=== PATIENT | male | born 1985 | race Caucasian/White ===

== ENCOUNTER 2023-06-05 13:21 | Emergency (ER) | payer OTHER, SELFPAY ==
[2023-06-05 13:52] VITALS: BP 170/93; PULSE 124; RESP 20; TEMP 36.6; O2SAT 94; BMI 70.7
--- NOTE | 2023-06-05 15:39 | CRLHL7_ITS ---
For Patients: As a result of the Century Cures Act, medical imaging exams and procedure reports are released immediately into your electronic medical record. You may view this report before your referring provider. If you have questions, please contact your health care provider. INDICATION: Dyspnea COMPARISON: None TECHNIQUE: Single-view study FINDINGS: TUBES AND LINES: None. HEART AND MEDIASTINUM: Enlarged heart. LUNGS AND PLEURAL SPACES: Vascular and interstitial prominence probably representing CHF/edema.A diffuse inflammatory process accounting for this is possible. No pleural effusion or pneumothorax. OSSEOUS STRUCTURES: Age-appropriate appearance. No acute focal finding. IMPRESSION: Enlarged heart. Findings likely representing CHF/edema. A diffuse inflammatory process accounting for this is also possible. No pleural effusion or pneumothorax. Dictated by Sreekanth Alba MD @ 06/05/2023 5:42:03 PM (Electronically Signed)
--- NOTE | 2023-06-05 15:40 | ED.GENADULT ---
HPI - General Adult General Chief complaint: Shortness of Breath/Dyspnea Stated complaint: Shortness of breath, cough, edema Time Seen by Provider: 06/05/23 15:33 History of Present Illness HPI narrative: This 38-year-old male comes in reporting worsening shortness of breath over the past month or so. He is morbidly obese and has a stated weight of 464 lb. He states that he was diagnosed with congestive heart failure 11 years ago. He is taking Lasix 40 mg daily and states that he has not had any change of his medications for quite some time. He moved from floor to the about 8 months ago. He does not report any fevers or signs of infection. He does report a cough and states that he has orthopnea related to edema. He has large bilateral edema with skin breakdown in his lower legs. He also has very large pannus with skin breakdown in the lower abdomen due to edema. He does not report any chest pain. He has not had any fevers. He arrives with some tachycardia and respirations at 20 per minute. He is maintaining sufficient oximetry on room air and is not using accessory muscles for breathing. Related Data Home Medications Medication Instructions Recorded Confirmed amlodipine 10 mg tablet 10 mg PO DAILY 06/05/23 06/05/23 furosemide 40 mg tablet (Lasix) 40 mg PO DAILY 06/05/23 06/05/23 hydralazine 25 mg tablet 25 mg PO BID 06/05/23 06/05/23 isosorbide mononitrate 60 mg 60 mg PO DAILY 06/05/23 06/05/23 tablet,extended release 24 hr Previous Rx's Medication Instructions Recorded amlodipine 10 mg tablet 10 mg PO DAILY #30 tabs 06/05/23 cephalexin 500 mg capsule 500 mg PO TID 7 days #21 caps 06/05/23 furosemide 40 mg tablet (Lasix) 40 mg PO QAM #30 tabs 06/05/23 hydralazine 25 mg tablet 25 mg PO BID #60 tabs 06/05/23 isosorbide mononitrate 60 mg 60 mg PO DAILY #30 tabs 06/05/23 tablet,extended release 24 hr Allergies Allergy/AdvReac Type Severity Reaction Status Date / Time No Known Drug Allergies Allergy Verified 06/05/23 13:43 Review of Systems Status of ROS: Reports: 10 or more systems reviewed and unremarkable except as noted in History and below Narrative: Constitutional: No fevers, no weight gain or loss. Eyes: No discharge. No vision changes. HENT: No congestion, no sore throat, no ear pain. Cardiovascular: No chest pain, no palpitations. Respiratory: Shortness of breath with exertion. Orthopnea. Occasional cough. No wheezing. Gastrointestinal: No abdominal pain, no vomiting, no diarrhea. Genitourinary: No dysuria, no hematuria. Musculoskeletal: Normal range of motion. Skin: No rashes, no pruritis. Neurological: No dizziness, weakness, sensory change, speech change. Endo/Heme/Allergies: No bruising or bleeding. No polydipsia. Pysch: no suicidality, no anxiety, no insomnia. All other systems reviewed and are negative. PFSH PFSH Social History Smoking Status: Never smoker How often do you have a drink containing alcohol: monthly or less AUDIT-C Alcohol total score: 1 Non-prescribed substance use: denies use Exam Narrative: Exam Narrative: Constitutional: Well-developed, well-nourished, no acute distress. Morbidly obese. HEENT: Normocephalic, atraumatic. Neck: Normal range of motion. Nontender. Supple. Heart: Regular. No murmurs. Tachycardia. Intact distal pulses. Lungs: Clear to auscultation. No chest discomfort. No wheezes, rhonchi, or rales. Abdomen: Normal bowel sounds. Nontender. No rebound tenderness. Genitalia: Deferred. Back: No midline tenderness. Normal range of motion. Extremities: Normal range of motion. No injury. Skin: Intact. Left lower extremity is wrapped in a compression wrap. Bilateral large lower extremity edema with some skin breakdown. Neurologic: No altered sensation. No weakness. Alert and oriented. Psychiatric: No suicidality. No anxiety or depression. No insomnia. Nursing notes and vitals signs are reviewed. Const: Vital Signs, click to edit/add: Vital Signs - 24 hr 06/05/23 13:52 06/05/23 16:10 06/05/23 16:15 Temperature 97.8 F Pulse Rate [Right Pulse Oximeter] 124 H 120 H 116 H Respiratory Rate 20 20 Blood Pressure [Ri ght Upper Arm] 170/93 H 141/94 H Pulse Oximetry 94 92 93 Oxygen Delivery Me thod Room Air Room Air Room Air 06/05/23 17:27 Temperature Pulse Rate [Right Pulse Oximeter] 116 H Respiratory Rate 22 Blood Pressure [Ri ght Upper Arm] 172/108 H Pulse Oximetry 90 Oxygen Delivery Me thod Room Air Course Vital Signs Vital signs: Initial Vital Signs Temperature 97.8 F 06/05/23 13:52 Temperature Source Temporal Artery Scan 06/05/23 13:52 Pulse Rate 124 H 06/05/23 13:52 Pulse Rhythm Regular 06/05/23 13:52 Respiratory Rate 20 06/05/23 13:52 Blood Pressure 170/93 H 06/05/23 13:52 Blood Pressure Mean 118 H 06/05/23 13:52 Blood Pressure Position Sitting 06/05/23 13:52 Pulse Oximetry 94 06/05/23 13:52 Oxygen Delivery Method Room Air 06/05/23 13:52 Vital Signs Temperature 97.8 F 06/05/23 13:52 Pulse Rate 124 H 06/05/23 13:52 Respiratory Rate 20 06/05/23 13:52 Blood Pressure 170/93 H 06/05/23 13:52 Pulse Oximetry 94 06/05/23 13:52 Oxygen Delivery Method Room Air 06/05/23 13:52 Temperature 97.8 F 06/05/23 13:52 Pulse Rate 116 H 06/05/23 17:27 Respiratory Rate 22 06/05/23 17:27 Blood Pressure 172/108 H 06/05/23 17:27 Pulse Oximetry 90 06/05/23 17:27 Oxygen Delivery Method Room Air 06/05/23 17:27 Medical Decision Making MDM Narrative Medical decision making narrative: This 38-year-old male comes in reporting worsening shortness of breath over the past month or so. He is morbidly obese weighing over 460 lb. He has chronic left lower extremity skin breakdown and feels that he may be developing an infection again. He has large edema throughout his body. Chest x-ray shows an enlarged heart but no other acute findings. His B type nitrate peptide is in normal range at 189. His white count is on the upper edge of normal. Other labs are essentially in normal range. This patient has normal-sounding lungs on auscultation. He is maintaining sufficient oximetry on room air and is not using accessory muscles for breathing. His shortness of breath is largely due to morbid obesity. He has been taking Lasix 40 mg daily but states that this does not seem to make him have increased voiding of urine. He states that he moved here several months ago and has not yet established a primary care physician here. He states that he wants to get a job 1st and then when his insurance is in place he will establish care. Today he is asking for refill of his medications. I stated that I would do this for short time but he will need to connect with a physician for ongoing management. Lab Data Labs: Lab Results 06/05/23 Range/Units 15:58 WBC 11.89 H (4.50-11.00) K/uL RBC 5.15 (4.30-5.90) m/uL Hgb 12.9 L (13.5-17.5) gm/dL Hct 41.8 (37.0-53.0) % MCV 81 (80-100) fL MCH 25 L (26-34) pg MCHC 31 L (32-36) gm/dL RDW Coeff of Kayy 14.2 (11.5-15.5) % Plt Count 409 (140-440) K/uL Neut % (Auto) 62.8 (42.0-72.0) % Lymph % (Auto) 26.9 (20-44) % [place] % (Auto) 7.4 (0.0-11.0) % Eos % (Auto) 1.9 (0.0-7.0) % Baso % (Auto) 0.6 (0.0-3.0) % Neut # (Auto) 7.50 H (1.7-7.0) K/uL Lymph # (Auto) 3.20 H (0.90-2.90) K/uL [place] # (Auto) 0.90 (0.00-0.90) K/UL Eos # (Auto) 0.20 (0.00-0.50) K/uL Baso # (Auto) 0.10 (0.00-0.30) K/uL Abs Immat Gran (auto) 0.00 (0.00-0.30) K/uL Imm/Tot Granulo (auto) 0.4 % Sodium 139 (135-149) mmol/L Potassium 3.5 L (3.6-5.1) mmol/L Chloride 100 (96-114) mmol/L Carbon Dioxide 26 (20-32) mmol/L Anion Gap 13 (7-15) mEq/L BUN 8 (5-24) mg/dL Creatinine 0.5 (0.5-1.5) mg/dL Estimated Creat Clear 190.00 Estimated GFR 132 ml/min Glucose 156 H (60-115) mg/dL Calcium 9.6 (8.4-10.6) mg/dL Troponin I 0.03 (0.01-0.04) ng/mL NT-Pro-B Natriuret Pep 189 pg/mL Imaging Data Chest x-ray: Radiologist's impression: Enlarged heart. Findings likely representing CHF/edema. A diffuse inflammatory process accounting for this is also possible. No pleural effusion or pneumothorax. Discharge Plan Discharge Clinical Impression: Exertional shortness of breath, Cellulitis Patient Disposition: Home, Self-Care Condition: Stable Additional Instructions: Arrange ongoing care with a primary physician. Take medications as prescribed. Follow up with MD otherwise as needed. Return if worsening. Prescriptions: New amlodipine 10 mg tablet 10 mg PO DAILY Qty: 30 2RF furosemide [Lasix] 40 mg tablet 40 mg PO QAM Qty: 30 2RF hydralazine 25 mg tablet 25 mg PO BID Qty: 60 2RF isosorbide mononitrate 60 mg tablet extended release 24 hr 60 mg PO DAILY Qty: 30 2RF cephalexin 500 mg capsule 500 mg PO TID 7 Days Qty: 21 0RF No Action furosemide [Lasix] 40 mg tablet 40 mg PO DAILY isosorbide mononitrate 60 mg tablet extended release 24 hr 60 mg PO DAILY amlodipine 10 mg tablet 10 mg PO DAILY hydralazine 25 mg tablet 25 mg PO BID Follow Up/Referrals: Provider,Not a Local [Primary Care Provider] - Stand Alone Forms: MyHealth Info Instructions
[2023-06-05 16:08] LABS: Basophils Percent Auto 0.6 % (0.0-3.0); Eosinophils Percent Auto 1.9 % (0.0-7.0); Hematocrit 41.8 % (37.0-53.0); Hemoglobin* 12.9 gm/dL (13.5-17.5); Immature Granulocytes Pct Auto 0.4 %; Lymphocytes Percent Auto 26.9 % (20-44); Mean Corpuscular HGB Conc 31 gm/dL (32-36); Mean Corpuscular Hemoglobin 25 pg (26-34); Mean Corpuscular Volume 81 fL (80-100); Monocytes Percent Auto 7.4 % (0.0-11.0); Neutrophils Percent Auto 62.8 % (42.0-72.0); Platelet Count* 409 K/uL (140-440); RDW Coefficient of Variation % 14.2 % (11.5-15.5); Red Blood Count 5.15 m/uL (4.30-5.90); White Blood Count* 11.89 K/uL (4.50-11.00)
[2023-06-05 16:10] VITALS: PULSE 120; O2SAT 92
[2023-06-05 16:12] LABS: Slide Review Reflex No
[2023-06-05 16:15] VITALS: BP 141/94; PULSE 116; RESP 20; O2SAT 93
[2023-06-05 16:19] LABS: Chloride* 100 mmol/L (96-114)
[2023-06-05 16:20] LABS: Potassium* 3.5 mmol/L (3.6-5.1); Sodium* 139 mmol/L (135-149)
[2023-06-05 16:22] LABS: Creatinine* 0.5 mg/dL (0.5-1.5); Estimated Glomerular Filt Rate 132 ml/min
[2023-06-05 16:23] LABS: Anion Gap 13 mEq/L (7-15); Blood Urea Nitrogen* 8 mg/dL (5-24); Calcium* 9.6 mg/dL (8.4-10.6); Carbon Dioxide* 26 mmol/L (20-32); Glucose* 156 mg/dL (60-115)
[2023-06-05 16:33] LABS: NT Pro B Type NatriureticPept* 189 pg/mL
[2023-06-05 17:17] LABS: Troponin I* 0.03 ng/mL (0.01-0.04)
[2023-06-05 17:27] VITALS: BP 172/108; PULSE 116; RESP 22; O2SAT 90
--- NOTE | 2023-06-05 18:37 | ED.NURSE ---
Md aware of vitals. Gave pt information- [facility] number to call to find a primary care physician. Pt stated he has not seen a primary in over a year- encourage pt to follow up. Denies SOB and pain at time
[2023-06-05 18:40] VITALS: BP 172/106; PULSE 113; RESP 22; TEMP 36.6; O2SAT 92
[2023-10-18 12:35] LABS: Troponin, Point-of-Care* 0.03 ng/ml (0.01-0.04)
== END 2023-06-05 18:40 | disposition home or self-care (01) ==
PROVIDERS: Emergency Provider Emergency Medicine Emergency Medical Services
DX: R06.02 Shortness of breath (principal); L03.116 Cellulitis of left lower limb
CPT/HCPCS: 36415; 71045; 80048; 83880; 84484; 85025; 99284

== ENCOUNTER 2024-04-07 07:48 | Outpatient (CLI) | payer BC, SELFPAY ==
--- OUTSIDE RECORDS SUMMARY | 2024-04-07 07:51 | XMS_ITS | Clinical Summary ---
Author Organization [facility] Address [place], [place] [address] Care Team Providers Care Printing Machine Operator Tape Rules Name Role Phone Clinic, No Pcp Or Primary Care Provider Unavaila ble Allergies No known active allergies Medications Medication Sig Dispensed Refills Start Date End Date Status Blood-Glucose MeterIndications:Typ e 2 diabetes mellitus without complication, without long-term current use of insulin (HC) Use to test 2 times a day 1 Each 08/06/2023 Active lancets 33 gauge miscIndications:Type 2 diabetes mellitus without complication, without long-term current use of insulin (HC) Test 2 times per day 100 Each 08/06/2023 Active blood sugar diagnostic stripIndications:Typ e 2 diabetes mellitus without complication, without long-term current use of insulin (HC) Test 2 times/day. Reason: High A1C 100 Each 08/06/2023 Active amLODIPine (NORVASC) 10 mg tabletIndications:HT N (hypertension) Take 1 Tablet (10 mg) by mouth once daily. 30 Tablet 2 12/17/2023 Active atorvastatin (LIPITOR) 40 mg tabletIndications:Hy perlipidemia, unspecified hyperlipidemia type Take 1 Tablet (40 mg) by mouth at bedtime. 30 Tablet 2 12/17/2023 Active bumetanide (BUMEX) 2 mg tabletIndications:Ac enterprise systolic congestive heart failure (HC) Take 1 Tablet (2 mg) by mouth two times daily. 60 Tablet 2 12/17/2023 Active spironolactone (ALDACTONE) 50 mg tabletIndications:Ch ronic combined systolic and diastolic congestive heart failure (HC) Take 1 Tablet (50 mg) by mouth once daily. 30 Tablet 12/17/2023 Active potassium chloride (KLOR-CON M10) 10 mEq extended-release tablet (part/cryst)Indicati ons:Acute systolic congestive heart failure (HC) Take 1 Tablet (10 mEq) by mouth two times daily with meals. 60 Tablet 2 01/01/2024 Active valsartan (DIOVAN) 80 mg tabletIndications:Pr imary hypertension Take 2 Tablets (160 mg) by mouth once daily. 180 Tablet 3 01/23/2024 Active carvediloL (COREG) 6.25 mg tabletIndications:Pr imary hypertension Take 1 Tablet (6.25 mg) by mouth two times daily. 180 Tablet 3 01/23/2024 Active metFORMIN (GLUCOPHAGE XR) 500 mg Extended-Release tabletIndications:Ty pe 2 diabetes mellitus without complication, with long-term current use of insulin (HC) Take 2 Tablets (1,000 mg) by mouth two times daily with meals. 120 Tablet 5 03/10/2024 Active metFORMIN (GLUCOPHAGE XR) 500 mg Extended-Release tabletIndications:Ty pe 2 diabetes mellitus without complication, with long-term current use of insulin (HC) Take 2 Tablets (1,000 mg) by mouth once daily with evening meal. 60 Tablet 5 12/17/2023 4 Discontinue d(Reorder (E-cancel not sent)) Active Problems Problem Noted Date Diagnosed Date HTN (hypertension) 12/17/2023 Hyperlipidemia 12/17/2023 Chronic combined systolic an d diastolic congestive heart failure 08/16/2023 Type 2 diabetes mellitus wit hout complication, with long-term current use of insulin 08/16/2023 Snores 08/16/2023 Witnessed episode of apnea 08/16/2023 Acute respiratory failure with hypoxia 3 Acute CHF 07/31/2023 Positive D dimer 07/31/2023 Leukocytosis 07/31/2023 Encounters Date Type Department Care Team Description 04/02/[address] [phone] Jaclyn Escoto NP Form 03/31/[address] [phone] Jaclyn Escoto NP Referral (Wound Care) 03/10/2024 2:20 PM CDT Office Visit [facility] [address] [place] [address] Hector Dinero MD Follow Up (3 month follow up) 03/10/2024 Travel 03/02/2024 Travel 01/23/[address] [phone] Edward Hanks MD Health Maintenance Update (Results) 01/22/2024 3:00 PM CDT Orders Only [facility] [address] [place] [address] Lab, [facility] Lab 01/22/2024 2:00 PM CDT Procedure Only [facility] [address] [place] [address] Samia Russell OD Eye Problem (VF/oct/pachy/iop) 01/22/2024 Travel from Last 3 Months Immunizations Name Administration Dates Next Due COVID-19 Vaccine Spikevax (M oderna 50mcg/0.5mL) 12YO+ [id number] Formula PF 12/17/2023 Hepatitis B (Adult) 12/17/2023 Pneumococcal Conj 20-valent (Prevnar 20) 024 Family History Medical History Relation Name Comments Cancer-ovarian Mother . Relation Name Status Comments Mother Social History Tobacco Use Types Packs/Day Years Used Date Smoking Tobacco: Former Cigarettes Passive Smoke Exposure: Past Smokeless Tobacco: Never Tobacco Cessation:Counseling Given: Not Answered Comments:quit at least 15 years ago (6-10-24) Alcohol Use Standard Drinks/Week Comments Yes 0 (1 standard drink = 0.6 oz pur e alcohol) very rare PHQ-2 Answer Date Recorded PHQ-2 TOTAL SCORE 6 08/16/2023 Social Connections Answer Date Recorded Frequency of Communication with Friends and Fami ly 0 08/02/2023 Financial Resource Strain Answer Date R ecorded Difficulty of Paying Living Expenses 3 08/02/2023 Difficulty of Paying Living Expenses Not on file 08/02/2023 Food Insecurity Answer Date Recorded Worried About Running Out of Food in the Last Ye ar 1 08/02/2023 Transportation Needs Answer Date Record ed Lack of Transportation (Medical) 1 08/02/2023 Housing Stability Answer Date Recorded Unable to Pay for Housing in the Last Year 1 08/02/2023 Sex and Gender Information Value Date Recorded Sex Assigned at Not on file Gender Identity Not on file Sexual Orientation Not on file Obstetrics History Last Filed Vital Signs Vital Sign Reading Time Taken Comments Blood Pressure 130/88 03/10/2024 2:45 PM CDT Pulse 64 03/10/2024 2:45 PM CDT Temperature 36.7 ??C (98 ??F) 08/06/2023 11:08 AM RHEUMATOLOGY NURSE Respiratory Rate 20 01/01/2024 3:22 PM CDT Oxygen Saturation 95% 01/01/2024 3:22 PM CDT Inhaled Oxygen Concentration - - Weight 206.2 kg (454 lb 8 oz) 03/10/2024 2:45 PM CDT Height 172.7 cm (5' 8) 12/17/2023 10:52 AM CDT Body Mass Index 69.11 12/17/2023 10:52 AM CDT Plan of Treatment Upcoming Encounters Date Type Department Care Team (Late st Contact Info) Description 04/21/2024 10:00 AM CDT Orders Only [facility] at [address] [phone] 04/22/2024 2:00 PM CDT Office Visit [facility] [address] [place] [phone] Samia Russell, OD [address] [place] [address] 06/10/2024 2:10 PM CDT Office Visit [address] [phone] Jaclyn Escoto NP [address] [place] [phone] Health Maintenance Due Date Last Done Comments Tdap 1994 HIV for age 15-65 1998 Hepatitis C screening for age 18-79 2001 Tetanus booster 2003 Hepatitis B series for Diabe camilla (2 of 3 - 19+ 3-dose series) 01/14/2024 12/17/2023 Influenza for age 9-49 06/01/2024 Depression screening for age 12+ 08/18/2024 08/18/2023, 08/16/2023, 08/16/2023 BMI (ht and wt on same day) for age 18+ 12/16/2024 12/17/2023 Lipids for age 35-44 03/10/2029 03/10/2024, 08/01/20 23 COVID-19 vaccine series Completed 12/17/2023 Pneumococcal series for age 6-64 Completed 12/17/19 24 Procedures Procedure Name Priority Date/Time Associated Diagnosis Comments URINE ALBUMIN TO CREATININE RATIO, RANDOM Routine 03/10/2024 2:48 PM CDT Type 2 diabetes mellitus without complication, with long-term current use of insulin (HC) LIPID PANEL Routine 03/10/2024 2:29 PM CDT Hyperlipidemia, unspecified hyperlipidemia type BASIC METABOLIC PANEL Routine 03/10/2024 2:29 PM CDT Type 2 diabetes mellitus without complication, with long-term current use of insulin (HC) Chronic combined systolic and diastolic congestive heart failure (HC) HTN (hypertension) HEMOGLOBIN A1C Routine 03/10/2024 2:29 PM CDT Type 2 diabetes mellitus without complication, with long-term current use of insulin (HC) BASIC METABOLIC PANEL Routine 01/22/2024 3:09 PM CDT Dilated cardiomyopathy (HC) Primary hypertension from Last 3 Months Results * (ABNORMAL) URINE ALBUMIN TO CREATININE RATIO, RANDOM (03/10/2024 2:48 PM CDT) ALB RAND URINE 17.7 mg/L 03/11/2024 2:05 PM CDT [facility] CREATININE,URIN E 0.58 g/L 03/11/2024 2:05 PM CDT [facility] ALBUMIN TO CREATININE RATIO,RAND UR 30.5(H) <30.0 mg/g creat 03/11/2024 2:05 PM CDT [facility] Urine URINE SPECIMEN / Unknown Non-Blood / Unknown 03/10/2024 2:48 PM CDT 03/10/2024 2:49 PM CDT Narrative [facility] - 03/11/2024 2:05 PM CDT If Albumin to Creatinine Ratio is elevated, consider the following: ? Elevations seen with incipient nephropathy associated ?? with diabetes mellitus or hypertension. Stress, exercise,hematuria, ?? and urinary tract infection may also produce elevated results. If clinically indicated, confirm with ?24 Hour Albumin to Creatinine Ratio. ?? Hector Dinero MD URINE [facility] [address] [place] [address], * (ABNORMAL) HEMOGLOBIN A1C MONITORING (POCT) (03/10/2024 2:29 PM CDT) Pathologist [facility] HEMOGLOBIN A1C MONITORING (POCT) 7.7(H) <=6.4 % 03/10/2024 2:40 PM CDT [facility] Blood BLOOD SPECIMEN / Unknown Venipuncture / Unknown 03/10/2024 2:29 PM CDT 03/10/2024 2:30 PM CDT [facility] - 03/10/2024 2:40 PM CDT ? (<=6.9%) ? Indicates good control ? (7.0% to 7.9%) ? Indicates fair control ? (>=8.0%) ? Indicates poor control ?? NOTE: ??These thresholds are guidelines and ?individual targets may vary. Falsely low levels may be seen with: Recent Transfusion, Recent Significant Blood Loss, Hemolytic Diseases, or Falsely elevated levels may be seen with: Untreated Anemias, Splenectomy ? Hector Dinero MD CHEMISTRY [facility] [address] [place] [address] * (ABNORMAL) LIPID PANEL (03/10/2024 2:29 PM CDT) CHOLESTEROL,TOTAL 214(H) 100 - 199 mg/dL 03/10/2024 3:06 PM T [facility] Comment: Cholesterol, Total Reference Ranges Desirable <200 mg/dL Borderline 200-239 mg/dL High >=240 mg/dL TRIGLYCERIDES 155(H) <150 mg/dL 03/10/2024 3:06 PM T [facility] HDL CHOLESTEROL 45 >40 mg/dL 3:06 PM T [facility] NON-HDL CHOLESTEROL 169(H) <145 mg/dl 03/10/2024 3:06 PM [facility] CHOL/HDL RATIO 4.76(H) <4.50 03/10/2024 3:06 PM T [facility] LDL CHOLESTEROL 138(H) <=130 mg/dL 03/10/2024 3:06 PM [facility] VLDL CHOLESTEROL 31(H) <=30 mg/dL 03/10/2024 3:06 PM T [facility] PROVIDER ORDERED STATUS RANDOM 03/10/2024 3:06 PM [facility] Blood BLOOD SPECIMEN / Unknown Venipuncture / Unknown 03/10/2024 2:29 PM CDT 03/10/2024 2:30 PM CDT Hector Dinero MD CHEMISTRY [facility] [address] [place] [address] * (ABNORMAL) BASIC METABOLIC PANEL (03/10/2024 2:29 PM CDT) Only the most recent of2 resultswithin the time period is included. SODIUM 140 136 - 145 mmol/L 03/10/2024 3:06 PM [facility] POTASSIUM 4.1 3.5 - 5.1 mmol/L 03/10/2024 3:06 PM [facility] CHLORIDE 98 98 - 107 mmol/L 03/10/2024 3:06 PM [facility] CO2,TOTAL 24 22 - 29 mmol/L 03/10/2024 3:06 PM [facility] ANION GAP 18 5 - 18 03/10/2024 3:06 PM [facility] GLUCOSE 129(H) 70 - 99 mg/dL 03/10/2024 3:06 PM [facility] CALCIUM 10.1(H) 8.6 - 10.0 mg/dL 03/10/2024 3:06 PM [facility] BUN 9 6 - 20 mg/dL 03/10/2024 3:06 PM [facility] CREATININE 0.75 0.70 - 1.20 mg/dL 03/10/2024 3:06 PM [facility] BUN/CREAT RATIO 12 10 - 20 3:06 PM [facility] eGFR >90 >90 mL/min/1.7 3m2 03/10/2024 3:06 PM [facility] Comment:As of 2021, eG FR is calculated by the CKD-EPI creatinine equation without race adjustment. ??eGFR can be influenced by muscle mass, exercise, and diet. ??The reported eGFR is an estimation only and is only applicable if the renal function is stable. Blood BLOOD SPECIMEN / Unknown Venipuncture / Unknown 03/10/2024 2:29 PM CDT 03/10/2024 2:30 PM T Hector Dinero MD CHEMISTRY [facility] [address] [place] [address] from Last 3 Months Advance Directives * Full Code (Latest Code Status on File) Date Activated Date Inactivated Comments 07/31/2023 2:11 PM 08/06/2023 5:31 PM Question Answer Comments Code Status Discussion: Reviewed Preferences Care Teams Printing Machine Operator Tape Rules Relationship Specialty Start Date End Date Clinic, No Pcp Or . PCP - General 03/31/24
== END 2024-04-07 07:49 | disposition home or self-care (01) ==
LOC: WOUND 07:50
PROVIDERS: Visit Provider Nurse Practitioner Family
DX: I89.0 Lymphedema, not elsewhere classified (principal); E11.40 Type 2 diabetes mellitus with diabetic neuropathy, unspecified; E66.01 Morbid (severe) obesity due to excess calories; Z68.45 Body mass index [BMI] 70 or greater, adult; Z79.84 Long term (current) use of oral hypoglycemic drugs
CPT/HCPCS: G0463

== ENCOUNTER 2024-06-23 12:00 | Outpatient (RCR) | payer BC, SELFPAY ==
[2024-03-31 02:00] VITALS: BMI 71.1
[2024-03-31 11:10] VITALS: BMI 71.1
[2024-04-07 11:51] VITALS: BMI 71.1
[2024-04-21 13:59] VITALS: BMI 71.1
[2024-05-06 12:42] VITALS: BMI 71.1
[2024-05-27 12:34] VITALS: BMI 71.1
[2024-06-09 11:24] VITALS: BMI 71.1
[2024-06-23 12:01] VITALS: BMI 71.1
== END 2024-06-23 14:50 | disposition home or self-care (01) ==
PROVIDERS: Visit Provider Family Medicine
DX: I89.0 Lymphedema, not elsewhere classified (principal); Z51.89 Encounter for other specified aftercare
CPT/HCPCS: 97110; 97140; 97167; X5282